=== PATIENT | male | born 1960 | race Caucasian/White ===

== ENCOUNTER 2017-03-26 05:47 | Inpatient (IN) | payer OTHER ==
[~2017-03-26 05:47] MED LIST: ACTOS30 MG; ACTOS30 MG PO; ALBUTEROL2.5 MG/0.5 IH; ANTIVERT25 M1 PO; ASPIR 8181 M1 PO; ASPIRIN81 MG PO; AUGMENTIN875 MG PO; AVALIDE 150-12.1 TAB; BACTRIM DS1 TA1 PO; CARVEDILOL25 M1 PO; CATAPRES0.2 MG PO; COREG25 M1 PO; CRESTOR5 MG; DOXYCYCLINE HY100 MG PO; FLOVENT RO50 MCG/DIS IH; GLIPIZIDE10 MG; GLIPIZIDE10 MG PO; GLIPIZIDE5 M1 PO; GLUCOPHAGE1000 MG PO; GLUCOPHAGE500 MG/TA1 PO; Glipizide PO; Glucophage PO; HUMALOG MI100 UNIT/5 SC; KEFLEX500 MG; LASIX20 M1 PO; LEVAQUIN500 MG PO; LEVEMIR100 UNITS/ SC; LIPITOR40 M1 PO; LIPITOR40 MG PO; LISINOPRIL20 MG PO; LOPRESSOR100 MG PO; Lisinopril PO; METFORMIN HCL1000 MG; METOPROLOL SUCC25 M1 PO; NITROSTAT0.4 MG SL; NORCO 5/325 TAB1 TAB PO; NORVASC5 M2 PO; NOVOLOG100 UNITS/ SC; OXYCODONE/APAP PO; PLAVIX75 MG PO; PREDNISONE20 MG PO; PROVENTIL17 GM IH; SULFAMYLON SOL250 M1 TOP; TRAMADOL HCL50 M2 PO; TYLENOL325 MG PO; VIBRAMYCIN100 MG PO; VYTORIN 10/80 T1 TAB; ZESTRIL10 MG PO; ZESTRIL20 M1 PO; ZOCOR20 MG PO; ZOFRAN ODT4 MG/UDTAB PO; Zocor PO
[2017-03-26] MEDS ORDERED: NO HOME MEDICATION XX (05:58)
[2017-03-26 06:17] LABS: BASO % 0.4 % (0-2); EOS % 2.5 % (0-7); EOSINOPHIL ABSOLUTE COUNT 0.3 tho/cmm (0.0-0.7); HCT-HEMATOCRIT 39.6 % (36.0-53.5); IMMATURE GRANULOCYTES ABSOLUTE 0.06 tho/cmm (0-0.03); IMMATURE GRANULOCYTES PERCENT 0.5 % (0-0.3); LYMPH % 22.8 % (20-45); LYMPH ABSOLUTE COUNT 2.6 tho/cmm (0.8-4.5); MCH (MEAN CORPUSCULAR HGB) 27.4 pg (28.0-32.0); MCHC MEAN CORPUSCULAR HGB CONC 32.8 % (32.0-36.0); MCV (MEAN CELL VOLUME) 83.4 fl (82.0-96.0); MEAN PLATELET VOLUME 11.5 cmc (9.4-12.4); MONO % 5.5 % (0-12); MONOCYTE ABSOLUTE COUNT 0.6 tho/cmm (0.0-1.2); NEUTROPHIL ABSOLUTE COUNT 7.8 tho/cmm (1.6-8.0); NEUTROPHIL-AUTOMATED 7.8 tho/cmm (1.6-8.0); NEUTROPHILS % 68.3 % (40-80); PLATELET COUNT 220 tho/cmm (150-450); RED BLOOD COUNT 4.75 mil/cmm (4.40-5.70); RED CELL DISTRIBUTION WIDTH 13.4 % (12.4-16.4); WHITE BLOOD COUNT 11.4 tho/cmm (4.0-10.0)
[2017-03-26 06:20] LABS: INR 0.9 INR (0.9-1.1); PROTHROMBIN TIME 10.3 SECONDS (9.0-13.6)
[2017-03-26 06:33] LABS: ANION GAP 15 mmol/L (0-20); BLOOD UREA NITROGEN 38 mg/dl (6-24); CALCIUM 8.8 mg/dl (8.5-10.5); CARBON DIOXIDE-VENOUS 23 mmol/L (22-32); CHLORIDE 102 mmol/l (96-110); CREATININE 1.97 mg/dl (0.60-1.30); GLUCOSE 410 mg/dL (70-110); POTASSIUM 4.5 mmol/L (3.7-5.1); SODIUM 135 mmol/L (135-145); eGFR VALUE FOR BLACK 43 mL/Min
[2017-03-26 06:47] LABS: ESR-ERYTHROCYTE SED RATE 60 mm/hr (0-20)
--- NOTE | 2017-03-26 14:23 | NUR ---
SHEATH PULLED AT 1355 PER MD ORDER. SEE VITAL SIGNS AT CORRELATING TIME. JOSE RN IN ROOM SECOND RN. PT SPOUSE ALSO IN ROOM. PRESSURE HELD TO RIGHT GROIN X23 MINUTES; QUESTIONABLE HEMATOMA NOTED DISTAL AND LATERAL TO SHEATH INSERTION SITE AND PRESSURE APPLIED TO THIS AREA PER JOSE RN X5 MIN. AP RN PALPATES SHEATH SITE AFTER PRESSURE RELEASED TO BE ABLE TO HELP ASSESS SITE IF QUESTIONABLE LATER. PT ELIE WELL-CONVERSED PLEASANTLY WITH STAFF AND SPOUSE THROUGHOUT PRESSURE HOLDING AND AFTER. HOB RAISED TO 30 DEGREES AFTER AND PT INSTRUCTED TO APPLY PRESSURE TO SITE IF HE NEEDS TO COUGH OR LAUGH AND INSTRUCTED NOT TO LIFT HEAD OFF BED OR DO ANY PUSHING OR PULLING.
[2017-03-27 04:48] LABS: BLOOD UREA NITROGEN 34 mg/dl (6-24); CREATININE 1.75 mg/dl (0.60-1.30); eGFR VALUE FOR BLACK 49 mL/Min
[2017-03-27] MEDS ORDERED: LIPITOR80 M1 PO (10:56)
[2017-03-27] MEDS ORDERED: EFFIENT10 MG PO (10:56)
[2017-03-27] MEDS ORDERED: COREG25 M1 PO (10:57)
[2017-03-27] MEDS ORDERED: PROTONIX40 M2 PO (10:57)
[2017-03-27] MEDS ORDERED: ASPIRIN81 M1 PO (10:57)
[2017-03-27] MEDS ORDERED: NITROGLYCERIN0.4 M2 SL (10:59)
[2017-03-27] MEDS ORDERED: PLAVIX75 M1 PO (12:17)
== END 2017-03-27 15:51 | DRG 247 ==
LOC: EDMED 05:47 → EMR2 06:42 → PCUA 07:58
PROVIDERS: Emergency Medicine; Internal Medicine Cardiovascular Disease; ADMIT Internal Medicine Cardiovascular Disease
PROC: 027035Z Dilation of Coronary Artery, One Artery with Two Drug-eluting Intraluminal Devices, Percutaneous Approach (ICD-10-PCS; principal; 2017-03-26)
PROC: 4A023N7 Measurement of Cardiac Sampling and Pressure, Left Heart, Percutaneous Approach (ICD-10-PCS; 2017-03-26)
PROC: B212YZZ Fluoroscopy of Single Coronary Artery Bypass Graft using Other Contrast (ICD-10-PCS; 2017-03-26)
PROC: B218YZZ Fluoroscopy of Left Internal Mammary Bypass Graft using Other Contrast (ICD-10-PCS; 2017-03-26)
PROC: B216YZZ Fluoroscopy of Right and Left Heart using Other Contrast (ICD-10-PCS; 2017-03-26)
DX: I21.19 ST elevation (STEMI) myocardial infarction involving other coronary artery of inferior wall (principal); N18.3 Chronic kidney disease, stage 3 (moderate); E11.65 Type 2 diabetes mellitus with hyperglycemia; Z68.43 Body mass index [BMI] 50.0-59.9, adult; E66.01 Morbid (severe) obesity due to excess calories; I25.10 Atherosclerotic heart disease of native coronary artery without angina pectoris; I12.9 Hypertensive chronic kidney disease with stage 1 through stage 4 chronic kidney disease, or unspecified chronic kidney disease; E78.5 Hyperlipidemia, unspecified; Z95.5 Presence of coronary angioplasty implant and graft; Z95.1 Presence of aortocoronary bypass graft; Z89.429 Acquired absence of other toe(s), unspecified side; Z87.891 Personal history of nicotine dependence; Z91.14 Patient's other noncompliance with medication regimen; Z79.4 Long term (current) use of insulin; I25.2 Old myocardial infarction
CPT/HCPCS: C1725; C1769; C1874; C1887; C8929; J1644; J1815; J2250; J2270; J3010; J7030; Q9967